=== PATIENT | female | born 1965 | race Caucasian/White ===

== ENCOUNTER 2017-06-02 10:32 | Emergency (ER) | payer MEDICAID, OTHER ==
[2017-06-02 10:43] VITALS: RESP 18; TEMP 97.9; O2SAT 96
[2017-06-02] MEDS ORDERED: TDAP ADULT 0.5 ML INJ (BOOSTRIX) IM ONE (10:45)
[2017-06-02] MEDS ORDERED: ONDANSETRON DISINTEGRATING 4 MG TAB PO ONE (10:57)
--- NOTE | 2017-06-02 11:37 | EDPHY ---
H & P Time Seen by Provider: 06/02/17 10:45 HPI/ROS: This patient was washing a ceramic bowl at home at broken her hands causing a laceration to her left 5th finger with moderate pain and moderate swelling that slowed with direct pressure prior to arrival. She also has some superficial abrasions to the left hand from the incident. She denies any other associated symptoms. She is quite apprehensive about the lacerations explaining that she does not like needles and is bothered by the side of blood. She states that she sometimes develops nausea and vomiting in association with wounds like this. Is she reports that her previous tetanus immunization she believes was more than 7 years ago. ROS: Neuro: No numbness or tingling no difficulty moving the affected finger Musculoskeletal: No bony pain. Integumentary: No foreign body sensation in her wounds No other associated symptoms and 5 point ROS is otherwise negative Smoking Status: Never smoked Physical Exam: Physical Exam Vital signs are normal. General: No acute distress Eyes: Pupils equal and react to light. Extraocular motions are intact. Lungs: No respiratory distress. Cardiac: Brisk capillary refill is intact throughout. Pulses are 2+ and symmetric in the affected extremity. Skin: No rash or pallor. Extremities: Atraumatic except for a laceration to 5th finger and superficial abrasions to left hand-dorsum Right hand: Patient has a 1.3 cm full-thickness laceration of the dorsum of her right proximal 5th finger with mild bleeding. The extensor tendon is partially exposed but not lacerated. She retains full strength in extension versus resistance. No foreign bodies under examination. Left hand: Superficial abrasions to the dorsum of her left thumb and hand. No active bleeding. No foreign bodies. Neuro: Alert and oriented x3 with no sensorimotor deficits in the affected extremity Constitutional: Initial Vital Signs Temperature (C) 36.6 C 06/02/17 10:34 Heart Rate 76 06/02/17 10:34 Respiratory Rate 18 06/02/17 10:34 Blood Pressure 105/71 06/02/17 10:34 O2 Sat (%) 96 06/02/17 10:34 O2 Delivery Mode Room Air Allergies/Adverse Reactions: No Known Allergies Allergy (Verified 06/02/17 10:43) Home Medications: Medication Instructions Recorded Ambien 06/02/17 Claritin 06/02/17 Xanax 06/02/17 MDM/Departure - MDM Procedures: Digital block: After verbal consent, using a 50 50 mix of 0.5% Marcaine 2% plain lidocaine, 27 gauge needle, chlorhexidine scrub under sterile conditions- 3 injections were administered to the base of the affected finger, 8 mL with good effect. Patient tolerated this well. There were no complications. The wound is 1.3 cm full-thickness. The wound was copiously irrigated with saline. The wound was explored for foreign bodies and none were found. The wound was prepped and draped in the normal sterile fashion. The edges were reapproximated using 4 interrupted sutures with 4 0 Ethilon with good hemostasis and cosmesis. The patient tolerated the procedure well. There were no complications. She was placed in a tube gauze dressing I counseled her regarding wound care Medications Given: Discontinued Medications Diphtheria/Tetanus/Acell Pertussis (Boostrix) 0.5 ml IM .ONCE ONE Stop: 06/02/17 10:46 Last Admin: 06/02/17 10:59 Dose: 0.5 ml Ondansetron HCl (Zofran Odt) 4 mg PO EDNOW ONE Stop: 06/02/17 10:58 Last Admin: 06/02/17 11:05 Dose: 4 mg ED Course/Re-evaluation: Left hand was treated with let solution followed by wound cleaning and bandages by our tech. After the digital block patient did become nauseous this is treated with Zofran with improvement. Discussion: Uncomplicated 5th finger laceration without neurovascular compromise. Superficial abrasions. Brief mild vagal symptoms without lightheadedness, syncope or other complications. Her brief nausea resolved with Zofran. - Depart Disposition: Home, Routine, Self-Care Clinical Impression: Finger laceration Qualifiers: Encounter type: initial encounter Finger: little finger Damage to nail status: without damage Foreign body presence: without foreign body Laterality: right Qualified Code(s): S61.216A - Laceration without foreign body of right little finger without damage to nail, initial encounter Hand abrasion Qualifiers: Encounter type: initial encounter Laterality: left Qualified Code(s): S60.512A - Abrasion of left hand, initial encounter Condition: Good Instructions: Finger Laceration (ED) Additional Instructions: Diagnosis: Finger laceration Plan: Keep the wound clean and dry for the next 2 days, then remove dressing in clean the wound daily with warm soapy water Return for suture removal in 10-12 days Return sooner if he develops redness, discharge or other concerns for infection. Referrals: Barbara Sorto MD [Primary Care Provider] - As per Instructions
[2017-06-02 11:56] VITALS: BP 102/78; PULSE 72
== END 2017-06-02 11:46 | disposition home or self-care (01) ==
LOC: CED 10:32
DX: S61.216A Laceration without foreign body of right little finger without damage to nail, initial encounter (principal); S60.512A Abrasion of left hand, initial encounter; S61.217A Laceration without foreign body of left little finger without damage to nail, initial encounter; Z23 Encounter for immunization; W45.8XXA Other foreign body or object entering through skin, initial encounter; Y92.009 Unspecified place in unspecified non-institutional (private) residence as the place of occurrence of the external cause; Y99.8 Other external cause status; Y93.G1 Activity, food preparation and clean up

== ENCOUNTER 2017-06-03 08:56 | Emergency (ER) | payer MEDICAID ==
[2017-06-03 09:08] VITALS: BP 113/76; PULSE 83; RESP 16; TEMP 98.2; O2SAT 94
--- NOTE | 2017-06-03 09:20 | EDPHY ---
H & P Time Seen by Provider: 06/03/17 09:08 HPI/ROS: CHIEF COMPLAINT: Right finger pain HISTORY OF PRESENT ILLNESS: The patient is a 51-year-old female who presents emergency department with right finger pain. She sustained a cut on her finger yesterday when she broken dish. She was concerned because she has throbbing in the finger at the laceration site. No fevers or chills. No numbness or tingling. REVIEW OF SYSTEMS: Negative Past medical history: Noncontributory Smoking Status: Never smoked Physical Exam: Vitals noted General Appearance: Alert and no distress. Head: Pupils equal. Normal. Respiratory: No respiratory distress. Cardiac: regular rate and rhythm. Extremities: Patient's right 5th digit has a laceration repaired with sutures. The sutures are clean dry and intact. No surrounding erythema. No discharge. No warmth. No streaking up the hand or wrist. Skin: No rashes or lesions. Neuro: Alert. Normal mood and affect. Constitutional: Initial Vital Signs Temperature (C) 36.8 C 06/03/17 09:06 Heart Rate 83 06/03/17 09:06 Respiratory Rate 16 06/03/17 09:06 Blood Pressure 113/76 06/03/17 09:06 O2 Sat (%) 94 06/03/17 09:06 O2 Delivery Mode Room Air Allergies/Adverse Reactions: No Known Allergies Allergy (Verified 06/02/17 10:43) Home Medications: Medication Instructions Recorded Ambien 06/02/17 Claritin 06/02/17 Xanax 06/02/17 Medical Decision Making ED Course/Re-evaluation: In the emergency department I discussed possible etiologies of her discomfort. Feel this is likely secondary to initial injury rather than an infection or foreign body. I offered the patient x-ray imaging of her right 5th digit to evaluate for retained foreign body. The patient refused images once they were ordered. She understands the risks of refusal. Patient does not have any redness or discharge at the site of the incision. I do not feel she needs antibiotics at this time. I explained this to the patient. I gave the patient warnings prior to leaving. She will return with worsening symptoms. Differential Diagnosis: My differential includes but is not limited to laceration, cellulitis, abscess, foreign body, fracture Departure - Departure Disposition: Home, Routine, Self-Care Clinical Impression: Laceration, Right 5th digit laceration Condition: Good Instructions: Laceration (ED) Additional Instructions: Return with increasing redness, discharge, fever, chills or any other concerns. Follow your instructions for suture removal Referrals: Barbara Sorto MD [Primary Care Provider] - As per Instructions
== END 2017-06-03 09:28 | disposition home or self-care (01) ==
LOC: CED 08:56
DX: S61.216D Laceration without foreign body of right little finger without damage to nail, subsequent encounter (principal); W25.XXXD Contact with sharp glass, subsequent encounter

== ENCOUNTER → 2017-07-22 | Outpatient (CLI) | payer MEDICAID | LOC: CIMAGING 14:46 | PROVIDERS: ATTEND Internal Medicine Endocrinology, Diabetes & Metabolism | DX: E04.1 Nontoxic single thyroid nodule (principal) | CPT/HCPCS: 76536-PO ==

== ENCOUNTER → 2017-08-14 | Outpatient (CLI) | payer MEDICAID | LOC: BMCIMAGING 12:50 | PROVIDERS: ATTEND Internal Medicine | DX: R22.1 Localized swelling, mass and lump, neck (principal); M54.2 Cervicalgia | CPT/HCPCS: 76536-PO ==

== ENCOUNTER 2017-10-04 14:41 | Emergency (ER) | payer MEDICAID ==
[2017-10-04 14:47] VITALS: BP 134/87; PULSE 98; RESP 22; TEMP 98.6; O2SAT 92
[2017-10-04] MEDS ORDERED: PROPARACAINE 0.5% 15 ML OPHT DROP RTEYE ONE (14:52)
[2017-10-04] MEDS ORDERED: PROPARACAINE 0.5% 15 ML OPHT DROP ONE (14:53)
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
[2017-10-04] MEDS ORDERED: FLUORESCEIN SODIUM 1 MG STRIP OP ONE ×2 (15:41→15:42)
== END 2017-10-04 16:02 | disposition home or self-care (01) ==
LOC: CED 14:41
DX: Z77.098 Contact with and (suspected) exposure to other hazardous, chiefly nonmedicinal, chemicals (principal); J45.909 Unspecified asthma, uncomplicated

== ENCOUNTER → 2017-10-07 | Outpatient (CLI) | payer MEDICAID | PROVIDERS: ATTEND Otolaryngology | DX: K21.9 Gastro-esophageal reflux disease without esophagitis (principal) | CPT/HCPCS: 92611-GN ==